=== PATIENT | male | born 1995 | race Caucasian/White ===

== ENCOUNTER 2017-12-06 08:50 | Emergency (ER) | payer SELFPAY ==
[~2017-12-06] VITALS: Ht 182.9 cm; Wt 68.0 kg
[2017-12-06 09:00] VITALS: BP 124/89
== END 2017-12-06 10:10 | disposition home or self-care (01) ==
LOC: ER 09:08
DX: H93.8X2 Other specified disorders of left ear (principal); H61.23 Impacted cerumen, bilateral; F12.10 Cannabis abuse, uncomplicated
CPT/HCPCS: 69209; 99282; X7700

== ENCOUNTER 2018-12-17 04:46 | Emergency (ER) | payer SELFPAY ==
[~2018-12-17] VITALS: Ht 172.7 cm; Wt 67.0 kg
[2018-12-17 07:00] VITALS: BP 110/76
== END 2018-12-17 07:03 | disposition home or self-care (01) ==
LOC: ER 05:30
DX: H61.23 Impacted cerumen, bilateral (principal); Z98.890 Other specified postprocedural states
CPT/HCPCS: 99283

== ENCOUNTER 2020-08-23 12:07 | Emergency (ER) | payer MEDICAID ==
[~2020-08-23] VITALS: Ht 182.9 cm; Wt 69.0 kg
[2020-08-23] MEDS ORDERED: IBUPROFEN 600MG TABLET PO ONE (12:45)
[2020-08-23] MEDS ORDERED: IBUP-2029 MT (13:15)
[2020-08-23 13:49] VITALS: BP 118/81
== END 2020-08-23 13:50 | disposition home or self-care (01) ==
LOC: ER 12:07
DX: S90.32XA Contusion of left foot, initial encounter (principal); W22.8XXA Striking against or struck by other objects, initial encounter; Y93.9 Activity, unspecified; Y92.9 Unspecified place or not applicable; Z98.890 Other specified postprocedural states
CPT/HCPCS: 73630; 99283

== ENCOUNTER 2020-10-08 12:01 | Emergency (ER) | payer MEDICAID ==
[~2020-10-08] VITALS: Ht 182.9 cm; Wt 68.0 kg
[~2020-10-08 12:01] MED LIST: IBUP-2029 MT
[2020-10-08] MEDS ORDERED: DOCUSATE SODIUM SUGAR FREE 100MG/10ML UDC PO ONE (15:00)
[2020-10-08 18:12] VITALS: BP 130/80
[2020-10-09] MEDS ORDERED: CARB-274 EACH EAR (08:08)
[2020-10-09] MEDS ORDERED: OFLO5DRO4 RIGHT EAR (08:08)
== END 2020-10-08 17:56 | disposition home or self-care (01) ==
LOC: ER 12:01
DX: H61.23 Impacted cerumen, bilateral (principal)
CPT/HCPCS: 69209; 99282

== ENCOUNTER 2020-10-09 07:25 | Emergency (ER) | payer MEDICAID ==
[~2020-10-09] VITALS: Ht 182.9 cm; Wt 68.0 kg
[2020-10-09] MEDS ORDERED: CARB-274 EACH EAR (08:08)
[2020-10-09] MEDS ORDERED: OFLO5DRO4 RIGHT EAR (08:08)
[2020-10-09 08:15] VITALS: BP 129/87
== END 2020-10-09 08:37 | disposition home or self-care (01) ==
LOC: ER 07:25
DX: H61.23 Impacted cerumen, bilateral (principal); Z98.890 Other specified postprocedural states
CPT/HCPCS: 69210; 99281; 99284